=== PATIENT | female | born 1940 | race Caucasian/White ===

== ENCOUNTER 2019-10-20 16:15 | Emergency (ER) | payer MEDICARE ==
[~2019-10-20] VITALS: Ht 165.1 cm; Wt 93.0 kg
[2019-10-20 16:22] VITALS: BP 131/59
--- NOTE | 2019-10-20 17:09 | NUR ---
PT SEEN AND DISCHARGED BY PA.
--- NOTE | 2019-10-20 17:09 | NUR ---
Patient discharged with v/s stable. Written and verbal after care instructions given and explained. Patient alert, oriented and verbalized understanding of instructions. Ambulatory with steady gait. All questions addressed prior to discharge. ID band removed. Patient advised to follow up with PMD. Rx of KEFLEX AND ACETOMINOPHEN given. Patient educated on indication of medication including possible reaction and side effects. Opportunity to ask questions provided and answered. ALL INSTRUCTIONS GIVEN BY MOSES RHODES
[2019-10-20 17:10] VITALS: BP 131/59
== END 2019-10-20 17:09 | disposition home or self-care (01) ==
LOC: MED 16:15
DX: S91.331A Puncture wound without foreign body, right foot, initial encounter (principal); W18.31XA Fall on same level due to stepping on an object, initial encounter; Y93.89 Activity, other specified; Y92.89 Other specified places as the place of occurrence of the external cause; Y99.8 Other external cause status
CPT/HCPCS: 99283